=== PATIENT | female | born 1975 | race American Indian/Alaskan Native ===

== ENCOUNTER 2017-09-13 15:14 | Emergency (ER) | payer OTHER ==
[2017-09-13 15:15] VITALS: BMI 22.1
[2017-09-13 15:22] VITALS: TEMP 97.2; O2SAT 100
[2017-09-13] MEDS ORDERED: Apap-Butalbital-Caffeine 325-50-40mg Tab PO STA (15:32)
--- NOTE | 2017-09-13 15:38 | C.PDOC ---
History Of Present Illness 42 y/o female c/o headach for 3 weeks. Patient reports a hx of headaches. pt states martinez is intermittant, at times gets better with nsaids Denies fever, chills , nausea, or vomiting. No weakness or visual changes. Time Seen by Provider: 09/13/17 15:23 Chief Complaint (Nursing): Headache History Per: Patient History/Exam Limitations: no limitations Onset/Duration Of Symptoms: Days Current Symptoms Are (Timing): Still Present Severity: Mild Quality: "Pain" Associated Symptoms: denies: Blurred Vision, Nausea, Vomiting, Extremity Weakness Recent travel outside of the [place]: No Additional History Per: Patient Past Medical History Reviewed: Historical Data, Nursing Documentation, Vital Signs Vital Signs: Last Vital Signs Temp 97.2 F L 09/13/17 15:17 Pulse 62 09/13/17 16:39 Resp 20 09/13/17 16:39 BP 147/84 09/13/17 16:39 Pulse Ox 100 09/13/17 16:39 - Medical History PMH: HTN - [facility] Procedures BREAST DX PROCEDURE NEC (07/21/14) DX ULTRASOUND-THORAX NEC (07/21/14) PERCUTAN NEEDLE BIOPSY OF BREAST (08/18/14) Family History: States: Stroke (Mother passed of Stroke secondary to HTN), Hypertension (Father and Mother) - Social History Hx Tobacco Use: No Hx Alcohol Use: No Hx Substance Use: No - Immunization History Hx Tetanus Toxoid Vaccination: No Hx Influenza Vaccination: No Hx Pneumococcal Vaccination: No Review Of Systems Except As Marked, All Systems Reviewed And Found Negative. Constitutional: Negative for: Fever, Chills Eyes: Negative for: Vision Change Gastrointestinal: Negative for: Nausea, Vomiting Neurological: Positive for: Headache. Negative for: Weakness Physical Exam - Physical Exam Appears: Non-toxic, No Acute Distress Skin: Warm, Dry Head: Atraumatic, Normacephalic Eye(s): bilateral: Normal Inspection, PERRL, EOMI Chest: Symmetrical Cardiovascular: Rhythm Regular, No Murmur Respiratory: Normal Breath Sounds, No Rales, No Rhonchi, No Wheezing Gastrointestinal/Abdominal: Soft, No Tenderness Neurological/Psych: Oriented x3, Normal Motor, Normal Sensation, Other (No focal deficit) Gait: Steady ED Course And Treatment O2 Sat by Pulse Oximetry: 100 (RA) Pulse Ox Interpretation: Normal Medical Decision Making Medical Decision Making: well appearing, no thunderclap features. neuro intact. Plans: * CT Head w/o * Tylenol ct neg. pt encourged to f/u outpt for mri neuro eval. well appearing, smiling innad. strict return precautions Disposition - Disposition Referrals: Dipesh Collier MD [Staff Provider] - Disposition: HOME/ ROUTINE Disposition Time: 17:41 Condition: STABLE Additional Instructions: please see specialist. return to er with worsening symptoms or concerns. Prescriptions: Acetaminophen/Butalbital/Caf [Fioricet] 1 tab PO Q8 PRN #10 tab PRN Reason: Headache Instructions: Acute Headache (ED) Forms: [employer] ([place]ian) - Clinical Impression Clinical Impression: Headache - Scribe Statement The provider has reviewed the documentation as recorded by the Scribe Provider Attestation: Arnaldo dawson All medical record entries made by the Scribe were at my direction and personally dictated by me. I have reviewed the chart and agree that the record accurately reflects my personal performance of the history, physical exam, medical decision making, and the department course for this patient. I have also personally directed, reviewed, and agree with the discharge instructions and disposition.
[2017-09-13] MEDS ORDERED: Apap-Butalbital-Caffeine 325-50-40mg Tab ONE (15:47)
--- NOTE | 2017-09-13 16:21 | CT ---
PROCEDURE: CT HEAD WITHOUT CONTRAST. HISTORY: Headache COMPARISON: 09/05/2015. TECHNIQUE: Axial computed tomography images were obtained through the head/brain without intravenous contrast. Radiation dose: Total exam DLP = 767.76 MGy-cm. This CT exam was performed using one or more of the following dose reduction techniques: Automated exposure control, adjustment of the mA and/or kV according to patient size, and/or use of iterative reconstruction technique. FINDINGS: HEMORRHAGE: No intracranial hemorrhage. BRAIN: Bowden-white matter differentiation is preserved. There is no mass, mass effect or abnormal extra-axial fluid collection. VENTRICLES: The ventricles are normal in size, shape and configuration. CALVARIUM: The skull base and calvarium are normal. PARANASAL SINUSES: Predominantly clear. MASTOID AIR CELLS: Predominantly clear. OTHER FINDINGS: None. IMPRESSION: No acute intracranial abnormality.
[2017-09-13 16:39] VITALS: BP 147/84; PULSE 62; RESP 20
== END 2017-09-13 16:49 | disposition home or self-care (01) ==
LOC: C.ER 15:14
DX: R51 Headache (principal)